=== PATIENT | male | born 1950 | race American Indian/Alaskan Native ===

== ENCOUNTER 2020-02-29 09:12 | Outpatient (CLI) | payer MEDICARE ==
--- NOTE | 2020-02-29 10:49 | Cat Scan Report ---
CT ABDOMEN AND PELVIS WITHOUT CONTRAST INDICATION / CLINICAL INFORMATION: MALIGNANT NEOPLASM OF PROSTATE. TECHNIQUE: Axial CT images were obtained through the abdomen and pelvis without IV contrast. All CT scans at this location are performed using CT dose reduction for ALARA by means of automated exposure control. COMPARISON: None available. FINDINGS: LOWER CHEST: Unremarkable LIVER: Unremarkable GALLBLADDER/BILIARY TREE: Unremarkable PANCREAS: Unremarkable SPLEEN: Unremarkable ADRENALS: Unremarkable KIDNEYS / URETER: Nonobstructing right renal calculi are present. No ureteral calculus or hydronephro sis. URINARY BLADDER: Unremarkable REPRODUCTIVE ORGANS: Prostatic calcifications are present. The prostate gland is not enlarged. STOMACH / SMALL BOWEL: Stomach and small bowel are normal in caliber. No evidence of bowel inflammati on. COLON: The colon is unremarkable. The appendix is normal in caliber. LYMPH NODES: No significant adenopathy. VASCULATURE: Mild atherosclerotic calcification without acute abnormality. OTHER: No free air, free fluid, or focal fluid collection is identified. SKELETAL SYSTEM: Mild scattered degenerative changes of the spine. No acute osseous findings. No susp icious osseous lesions. IMPRESSION: 1. No acute process. No evidence of metastatic disease in the abdomen or pelvis. 2. Nonobstructing right renal calculi. No ureteral calculus or hydronephrosis. Signer Name: Bertram Antoine MD Signed: 02/29/2020 10:44 AM Workstation Name: [id number]
--- NOTE | 2020-02-29 13:13 | Nuclear Medicine Report ---
NUCLEAR MEDICINE BONE SCAN, WHOLE BODY INDICATION: MALIGNANT NEOPLASM OF PROSTATE. TECHNIQUE: 25 mCi of Tc-99m MDP were injected IV. Whole body images were obtained. COMPARISON: CT abdomen pelvis without contrast performed the same day. FINDINGS: Skeletal Structures: Fairly symmetric, likely degenerative uptake is present involving the shoulders, sternoclavicular joints, knees and right ankle. Skeletal Lesions: No abnormal foci of radiotracer uptake are detected to suggest metastatic disease.. Soft Tissues: Normal. Kidneys: Normal, symmetric activity. Additional Findings: None. IMPRESSION: No evidence for metastatic disease to the bones on bone scan. Degenerative findings as described.. Signer Name: Zoltan Nolan Jr, MD Signed: 02/29/2020 1:08 PM Workstation Name: [id number]
== END 2020-02-29 09:13 | disposition home or self-care (01) ==
LOC: NM 09:12
PROVIDERS: ATTEND Urology
DX: N20.0 Calculus of kidney (principal); I70.0 Atherosclerosis of aorta; C61 Malignant neoplasm of prostate
CPT/HCPCS: 74176; 78306; A9503